=== PATIENT | male | born 1980 | race Hispanic/Latino ===

== ENCOUNTER 2021-10-06 08:38 | Emergency (ER) | payer SELFPAY ==
[~2021-10-06] VITALS: Ht 170.2 cm; Wt 76.0 kg
[2021-10-06 08:54] VITALS: BP 170/94
[2021-10-06 09:11] LABS: HEMATOCRIT 48.1 % (39.0-50.0); HEMOGLOBIN 15.4 g/dl (14.0-18.0); IMMATURE GRANULOCYTES 0.1 % (0.0-5.0); MEAN CELL VOLUME 85.9 fL CALC (80.0-100.0); MEAN CORPUSCULAR HGB 27.5 pG CALC (26.0-32.0); NEUT# 3.23 thou/uL (1.82-7.42); RED BLOOD COUNT 5.6 mill/uL (4.70-6.10); RED CELL DISTRI WIDTH 13.4 % (11.5-15.5)
[2021-10-06 09:15] VITALS: BP 123/74
[2021-10-06 09:22] LABS: ALBUMIN 4.6 g/dL (3.2-5.0); ALKALINE PHOSPHATASE 84 u/l (38-126); ANION GAP 12 (6-22 (CALC)); BILIRUBIN, TOTAL 0.8 mg/dL (0.0-1.4); BUN 13 mg/dL (9-20); BUN/CREATININE RATIO 17 (12-20 (CALC)); CARBON DIOXIDE 25 mmol/l (22-30); CHLORIDE 105 mmol/l (95-108); CREATININE 0.8 mg/dL (0.7-1.3); GFR > 60 ML/MIN (>=60 (CALC)); GFR FOR AFR.AMER. > 60 ML/MIN (>=60 (CALC)); LIPASE 80 u/l (23-300); POTASSIUM 4.1 mmol/l (3.5-5.1); SGOT/AST 53 u/l (17-59); SODIUM 138 mmol/l (137-146); TOTAL PROTEIN 8.5 g/dL (6.3-8.2)
[2021-10-06] MEDS ORDERED: CIPROFLOXACN500 MG PO (09:27)
[2021-10-06] MEDS ORDERED: METRONIDAZOLE500 MG PO (09:27)
[2021-10-06 09:31] VITALS: BP 149/83
[2021-10-06 09:41] LABS: URINE BILIRUBIN - DIPSTICK NEGATIVE (NEGATIVE); URINE BLOOD DIPSTICK NEGATIVE (NEGATIVE); URINE COLOR YELLOW; URINE GLUCOSE - DIPSTICK NEGATIVE (NEGATIVE); URINE KETONE NEGATIVE (NEGATIVE); URINE LEUK ESTERASE NEGATIVE (NEGATIVE); URINE PROTEIN - DIPSTICK NEGATIVE (NEG-TRACE); URINE SPECIFIC GRAVITY >=1.030; URINE UROBILINOGEN - DIPSTICK 0.2 E.U./dL (0.2)
[2021-10-06 09:43] LABS: URINE NITRITE - DIPSTICK NEGATIVE (Negative)
[2021-10-06 11:05] VITALS: BP 149/83
== END 2021-10-06 11:16 | disposition home or self-care (01) | DRG 392 ==
LOC: ED 08:38
PROVIDERS: Family Medicine
DX: R10.32 Left lower quadrant pain (principal)
CPT/HCPCS: Q9967